=== PATIENT | male | born 1965 | race Caucasian/White ===

== ENCOUNTER 2019-09-02 16:58 | Emergency (ER) | payer OTHER, SELFPAY ==
--- NOTE | 2019-09-02 17:16 | ED.URI ---
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 Reports history of asthma. Reports he has been using his albuterol inhaler more than he should, every 4 hours. Reports he is out of his nebulizer solution. Reports low-grade fever. MD elicited complaint: cough Related Data Home Medications Medication Instructions Recorded Confirmed albuterol sulfate 2 puff INHALATION Q4-6H PRN 09/02/19 09/02/19 amlodipine-benazepril 1 cap DAILY 09/02/19 09/02/19 meloxicam 7.5 mg BID 09/02/19 09/02/19 montelukast 10 mg DAILY 09/02/19 09/02/19 paroxetine HCl 20 mg PO DAILY 09/02/19 09/02/19 ranitidine HCl 150 mg BID 09/02/19 09/02/19 Allergies Allergy/AdvReac Type Severity Reaction Status Date / Time Tetanus Vaccines and Toxoid Allergy Hives Verified 09/02/19 17:25 Review of Systems Review of Systems: Narrative: CONSTITUTIONAL: Reports malaise, low-grade fever. EYES: Denies visual changes, redness, or discharge. ENT: Reports rhinorrhea, congestion. Denies sinus pain, otalgia and sore throat. CARDIOVASCULAR: Denies chest pain, palpitations, or edema. RESPIRATORY: Reports cough, chest congestion, wheezing. Denies dyspnea. GASTROINTESTINAL: Denies abdominal pain, nausea, vomiting, diarrhea SKIN: Denies rash or itching. MUSCULOSKELETAL: Denies myalgia. NEUROLOGIC: Denies headache. All systems reviewed & are unremarkable except as noted in HPI and below PMFSH Social History Social History Gender identity (if verbalized by the patient): Male Comments At time of signature, agree with nursing past medical, surgical, social and family history. There is no relevant family history pertinent to the presenting complaint Exam Narrative: Exam Narrative: GENERAL: Well-appearing, well-nourished, and in no acute distress. HEAD: Normocephalic EYES: PERRLA, conjunctivae clear ENT: Nares clear, turbinates erythematous, clear discharge. Mucous membranes moist. TM pearly barriga with dull light reflex bilaterally; no tragal tenderness. Oropharynx not erythematous without lesions. Tonsils not enlarged and without exudate, no drooling, no hoarseness, no trismus. NECK: Supple. No lymphadenopathy CHEST: Clear to auscultation, breath sounds equal. Scattered wheeze and scattered mild rhonchi, rales, or stridor. No respiratory distress, speaks in full sentences. HEART: Regular rate and rhythm. No murmur heard. Normal peripheral pulses. SKIN: Warm, dry, no rash. NEURO: Alert and oriented x3. PSYCH: Normal mood and affect Course Course Emergency Course: Patient is aware of diagnosis, understands and agrees to treatment plan. Anticipatory guidance given. Patient agrees to follow-up as directed and is aware of reasons to seek care at the emergency department. Portions of this record may have been created with voice recognition software Vital Signs Vital signs: Vital Signs Temperature 100.0 F H 09/02/19 17:25 Pulse Rate 95 09/02/19 17:25 Respiratory Rate 16 09/02/19 17:25 Blood Pressure 148/83 H 09/02/19 17:25 Pulse Oximetry 98 09/02/19 17:25 Temperature 100.0 F H 09/02/19 17:25 Pulse Rate 95 09/02/19 17:25 Respiratory Rate 16 09/02/19 17:25 Blood Pressure 148/83 H 09/02/19 17:25 Pulse Oximetry 98 09/02/19 17:25 Reviewed. Patient has history of hypertension MDM - URI/Sore Throat MDM Narrative Medical decision making narrative: Differential diagnosis considered: Strep pharyngitis, allergic rhinitis, upper respiratory tract infection, sinusitis, rhinosinusitis, nasopharyngitis. viral pharyngitis, otitis media, otitis externa, pneumonia,
[2019-09-02 17:25] VITALS: BP 148/83; PULSE 95; RESP 16; TEMP 37.8; O2SAT 98
== END 2019-09-02 17:48 | disposition home or self-care (01) ==
PROVIDERS: Emergency Provider Nurse Practitioner
DX: J32.9 Chronic sinusitis, unspecified (principal); J40 Bronchitis, not specified as acute or chronic; I10 Essential (primary) hypertension
CPT/HCPCS: 99203; G0463

== ENCOUNTER 2021-05-03 16:24 | Emergency (ER) | payer MEDICARE, SELFPAY ==
[2021-05-03 16:50] VITALS: BP 166/99; PULSE 94; RESP 24; TEMP 36.9; O2SAT 98
--- NOTE | 2021-05-03 17:41 | ED.GENADULT ---
HPI - General Adult General Chief complaint: Unspecified Stated complaint: Inhaler Refill History of Present Illness HPI narrative: This is a 55-year-old male comes in complaining of shortness of breath with some wheezing. Patient states that he called the pharmacy to get a refill and he was not able to get his medication refilled. Patient states he came to urgent care because he is in need of refill because he cannot breathe Related Data Allergies Allergy/AdvReac Type Severity Reaction Status Date / Time Tetanus Vaccines and Toxoid Allergy Hives Verified 05/03/21 17:10 Review of Systems Review of Systems: Wheezing and shortness of breath All systems reviewed & are unremarkable except as noted in HPI and below PMFSH Social History Social History Gender identity (if verbalized by the patient): Male Comments At time as signature, I have reviewed and agree with nursing past medical, social, surgical and family history. Please see nursing chart for further information. There is no relevant family history pertinent to the presenting complaint. Exam Narrative: GENERAL:Well-appearing, well-nourished, and in no acute distress. HEAD:Normocephalic, atraumatic. EYES: PERRLA ENT: Nares clear, no rhinorrhea or epistaxis. CHEST: Diminished wheezes throughout to auscultation. Mild respiratory distress. HEART: Regular rate and rhythm slightly tachycardic. Normal peripheral pulses. ABDOMEN: Soft, nontender, nondistended, normal active bowel sounds. EXTREMITIES: Normal range of motion. No edema. SKIN: Warm, dry, no rash. NEURO: No focal deficits. Alert and oriented x3. Course Vital Signs Vital signs: Vital Signs Temperature 98.4 F 05/03/21 16:50 Pulse Rate 94 05/03/21 16:50 Respiratory Rate 24 H 05/03/21 16:50 Blood Pressure 166/99 H 05/03/21 16:50 Pulse Oximetry 98 05/03/21 16:50 Temperature 98.4 F 05/03/21 16:50 Pulse Rate 94 05/03/21 16:50 Respiratory Rate 24 H 05/03/21 16:50 Blood Pressure 166/99 H 05/03/21 16:50 Pulse Oximetry 98 05/03/21 16:50 Medical Decision Making Vital Signs Vital Signs: Vital Signs Temperature 98.4 F 05/03/21 16:50 Pulse Rate 94 05/03/21 16:50 Respiratory Rate 24 H 05/03/21 16:50 Blood Pressure 166/99 H 05/03/21 16:50 Pulse Oximetry 98 05/03/21 16:50 Temperature 98.4 F 05/03/21 16:50 Pulse Rate 94 05/03/21 16:50 Respiratory Rate 24 H 05/03/21 16:50 Blood Pressure 166/99 H 05/03/21 16:50 Pulse Oximetry 98 05/03/21 16:50 Discharge Plan Discharge Clinical Impression: Asthma exacerbation Qualifiers: Asthma severity: mild Asthma persistence: persistent Qualified Code(s): J45.31 - Mild persistent asthma with (acute) exacerbation Hypertension Qualifiers: Hypertension type: primary hypertension Qualified Code(s): I10 - Essential (primary) hypertension Patient Disposition: Home, Self-Care Condition: Stable Instructions: Antibiotic Form, Asthma (ED), Chronic Hypertension (ED) Additional Instructions: Your blood pressure was elevated in the clinic today, Due noncompliance your blood pressure is elevated and it is crucial that you follow up with your primary care provider as she are putting yours self at risk for a stroke and or heart attack. please follow-up with your regular doctor for further evaluation and monitor for evaluation of hypertension Please ISELA schedule a followup visit with your personal physician with in the next 1-4 weeks for further evaluation and treatment. Also, ask your personal physician to assist you regarding blood pressure. Even blood pressure exceeding 120/80 may indicate pre-hypertension. If your symptoms persist, change or worsen significantly before you can contact your personal physician then please, without delay, go to the emergency department for further evaluation. Prescriptions: New albuterol sulfate 90 mcg/actuation HFA aerosol inhaler 2 puff inhalation QID PRN (Reaso
== END 2021-05-03 17:50 | disposition home or self-care (01) ==
PROVIDERS: Emergency Provider Nurse Practitioner Family
DX: J45.31 Mild persistent asthma with (acute) exacerbation (principal); I10 Essential (primary) hypertension; K21.9 Gastro-esophageal reflux disease without esophagitis; Z96.60 Presence of unspecified orthopedic joint implant
CPT/HCPCS: 94640; 99213; G0463